=== PATIENT | male | born 1970 | race Caucasian/White ===

== ENCOUNTER → 2024-03-02 | Outpatient (CLI) | payer BC ==
[2024-03-02 07:41] LABS: HEMOGLOBIN 15.7 g/dl (13.5-17.5); MEAN CORPUSCULAR HEMOGLOBIN 31.7 pg (27.0-33.0); MEAN CORPUSCULAR HGB CONC 34.9 g/dl (32.0-36.5); MEAN CORPUSCULAR VOLUME 90.7 fl (80.0-96.0); PLATELET COUNT, AUTOMATED 269 10^3/uL (150-450); RED BLOOD COUNT 4.96 10^6/uL (4.30-6.10); WHITE BLOOD COUNT 6.4 10^3/uL (4.0-10.0)
[2024-03-02 08:08] LABS: BLOOD UREA NITROGEN 20 MG/DL (9-23); CALCIUM LEVEL 9.1 MG/DL (8.5-10.1); CARBON DIOXIDE LEVEL 29 MMOL/L (20-31); CHLORIDE LEVEL 106 MMOL/L (98-107); GLOMERULAR FILTRATION RATE > 60.0 (>56); GLUCOSE, FASTING 171 MG/DL (60-100); POTASSIUM SERUM 4.4 MMOL/L (3.5-5.1); SODIUM LEVEL 142 MMOL/L (136-145)
== END ==
LOC: M RAD 06:36
PROVIDERS: ATTEND Nurse Practitioner Family
DX: Z01.818 Encounter for other preprocedural examination (principal)

== ENCOUNTER 2024-03-16 07:51 | Day surgery (SDC) | payer BC ==
[~2024-03-16] VITALS: Ht 182.9 cm; Wt 133.4 kg
[~2024-03-16 07:51] MED LIST: GLIM4TAB5 PO; JARD1TAB PO; LIDOCAINE 2% 100MG/5ML SDV (FOR ANES.) As Ordered ONE; LISI20TA33 PO; METO25TA4 PO; MIDAZOLAM INJ 2MG/2ML VIAL As Ordered ONE; OMEG-28 PO; ONDANSETRON 4MG 2ML VIAL As Ordered ONE; SEMA2PEN SQ; ceFAZolin SOD 2 GM in IV 1 EA IV ONE; fentaNYL 100 MCG/2 ML INJECTION As Ordered ONE; propofoL 200 MG/20 ML VIAL As Ordered ONE
[2024-03-16] MEDS ORDERED: NS (Normal Saline) 0.9% 1,000 ML IV SCH ×2 (08:10→10:30)
[2024-03-16] MEDS: EMLA CREAM 5GM TUBE (LIDOCAINE/PRILOCAINE) TOP ONE (08:45)
[2024-03-16] MEDS: ceFAZolin SODIUM 3 GM in DEXTROSE 5% (D5W) MINI-BAG PLU 100 ML IV ONE (08:55)
[2024-03-16] MEDS: ceFAZolin 1GM VIAL As Ordered ONE (09:25)
[2024-03-16] MEDS ORDERED: ACETAMINOPHEN 1000MG/100ML IV BAG As Ordered ONE (09:25)
[2024-03-16] MEDS: ceFAZolin 2 GM/D5W 50 ML IV BAG As Ordered ONE (09:26)
[2024-03-16] MEDS: BACITRACIN OINTMENT 30GM TUBE As Ordered ONE (09:43)
[2024-03-16] MEDS ORDERED: HYDROMORPHONE HCL 0.5 MG/ 0.5 ML SYRINGE IV PRN (10:30)
[2024-03-16] MEDS ORDERED: fentaNYL 100 MCG/2 ML INJECTION IV PRN (10:30)
[2024-03-16] MEDS ORDERED: ONDANSETRON 4MG 2ML VIAL IV PRN (10:30)
[2024-03-16] MEDS ORDERED: oxyCODONE 5MG TAB PO PRN (10:30)
[2024-03-16] MEDS ORDERED: OXYC1TAB23 PO (10:59)
[2024-03-16] MEDS ORDERED: PERCOCET 5MG/325MG TAB PO PRN (11:15)
[2024-03-16 11:55] VITALS: BP 138/79; TEMP 97.1; O2SAT 95
[2024-03-17] MEDS ORDERED: ceFAZolin SOD 3 GM in DEXTROSE 5% (D5W) MINI-BAG PLU 1... IV ONE (06:00)
== END 2024-03-16 12:08 | disposition home or self-care (01) ==
LOC: M SDC 07:51
PROVIDERS: ATTEND Urology
DX: N47.1 Phimosis (principal); E11.9 Type 2 diabetes mellitus without complications; E78.5 Hyperlipidemia, unspecified; E66.9 Obesity, unspecified; Z79.899 Other long term (current) drug therapy; Z79.84 Long term (current) use of oral hypoglycemic drugs; Z79.85 Long-term (current) use of injectable non-insulin antidiabetic drugs; Z68.39 Body mass index [BMI] 39.0-39.9, adult
CPT/HCPCS: 54161; 88304; J0131; J0690; J1100; J2250; J2405; J3010